=== PATIENT | male | born 1975 | race Caucasian/White ===

== ENCOUNTER → 2019-05-17 | Outpatient (CLI) | payer OTHER | LOC: ULTRA 07:56 | DX: K21.9 Gastro-esophageal reflux disease without esophagitis (principal); K59.00 Constipation, unspecified ==

== ENCOUNTER 2020-05-03 16:50 | Emergency (ER) | payer OTHER ==
[~2020-05-03] VITALS: Ht 185.4 cm; Wt 74.8 kg
[2020-05-03] MEDS ORDERED: ANUSOL-HC25 MG RECTAL (18:40)
[2020-05-03] MEDS ORDERED: COLACE100 MG PO (18:43)
[2020-05-03] MEDS ORDERED: LIDOCAINE 2%2 %/5 GM TOP (18:43)
[2020-05-03 19:14] VITALS: BP 134/75
== END 2020-05-03 19:14 | disposition home or self-care (01) ==
LOC: ER 16:50
DX: K64.9 Unspecified hemorrhoids (principal)

== ENCOUNTER → 2021-01-14 | Outpatient (CLI) | payer OTHER ==
[~2021-01-14] VITALS: Ht 188 cm; Wt 71.2 kg
[~2021-01-14] MED LIST: ANUSOL-HC25 MG RECTAL; CLONAZEPAM 0.50.5 M1 PO; COLACE100 MG PO; LIDOCAINE 2%2 %/5 GM TOP; OMEPRAZOLE40 MG PO; PEPCID20 MG PO
== END | disposition home or self-care (01) ==
LOC: GI 08:29
PROVIDERS: ATTEND Internal Medicine Gastroenterology
DX: R07.9 Chest pain, unspecified (principal); K21.9 Gastro-esophageal reflux disease without esophagitis; M10.9 Gout, unspecified; Z98.890 Other specified postprocedural states; Z20.822 Contact with and (suspected) exposure to COVID-19; Z79.899 Other long term (current) drug therapy
CPT/HCPCS: 62110; 62900